=== PATIENT | male | born 1955 | race Asian ===

== ENCOUNTER 2023-03-20 07:56 | Outpatient (CLI) | payer BC, OTHER ==
[2023-03-20] MEDS ORDERED: Iopamidol-370 76% 500 ML MDV (1 ML CHARGE) ONE (09:26)
== END 2023-03-20 07:57 | disposition home or self-care (01) ==
LOC: BICCT 07:56
PROVIDERS: ATTEND Urology
DX: R31.29 Other microscopic hematuria (principal); F17.200 Nicotine dependence, unspecified, uncomplicated; N28.1 Cyst of kidney, acquired; K76.89 Other specified diseases of liver; N20.0 Calculus of kidney
CPT/HCPCS: 74178; Q9967

== ENCOUNTER 2023-11-02 07:56 | Outpatient (CLI) | payer MEDICARE ==
[2023-11-02] MEDS ORDERED: Iopamidol 370 76% 100 ML VIAL ONE (13:44)
== END 2023-11-02 07:57 | disposition home or self-care (01) ==
LOC: CT 07:56
PROVIDERS: ATTEND Urology
DX: R31.9 Hematuria, unspecified (principal); N20.0 Calculus of kidney; N28.1 Cyst of kidney, acquired; N28.89 Other specified disorders of kidney and ureter
CPT/HCPCS: 36415; 74170; 80061; 81001; 83036; 87086; Q9967